=== PATIENT | male | born 1950 | race Caucasian/White ===

== ENCOUNTER 2020-03-08 17:13 | Inpatient (IN) ==
[2020-03-08] MEDS ORDERED: IOPAMIDOL 100 ML BOTTLE IV ONE (17:14)
--- NOTE | 2020-03-08 17:52 | XRay Report ---
HISTORY: Constipation and bloating FINDINGS: There is a large amount of gas with multiple air-fluid levels in dilated proximal and mid colon. There is air in nondistended sigmoid colon and rectum. A transition point is not clearly identified. There is relatively little fecal material in the colon. Air-fluid level is present in the stomach. The stomach is not overly distended. Couple air-fluid levels are seen in borderline dilated small intestine in the left mid abdomen. No free intra-abdominal air is present. Right diaphragm is elevated. There are postsurgical changes following prior fusion at L4-5. Two-vessel calcifications are present in the lower pelvis. IMPRESSION: Mid to distal large bowel obstruction Interpreted and Authenticated by: Willy Medel 03/08/20
[2020-03-08] MEDS ORDERED: ONDANSETRON 4 MG/2 ML VIAL IV ONE (18:23)
[2020-03-08] MEDS ORDERED: HYDROmorphone 0.5 MG/0.5 ML SYRINGE IV PRN ×2 (18:23→20:20)
[2020-03-08 19:40] LABS: POC Blood Urea Nitrogen 17 mg/dl (8-23); POC CO2 21 mmol/L (22-30); POC Calcium, Ionized 1.04 mmol/L (1.16-1.32); POC Chloride 102 mmol/L (96-108); POC Creatinine 0.9 mg/dl (0.7-1.2); POC Glucose, Random 106 mg/dL (70-105); POC Potassium 3.9 mmol/L (3.3-5.1); POC Sodium 137 mmol/L (133-145)
[2020-03-08 19:40] LABS: Basophils # (Auto) 0.04 K/mcL (0.00-0.30); Basophils % (Auto) 0.5 % (0.0-2.0); Eosinophils # (Auto) 0.37 K/mcL (0.00-0.70); Eosinophils % (Auto) 4.2 % (0.0-7.0); Granulocytes % (Auto) 76.6 % (38.0-78.0); Hematocrit 44.2 % (40.1-51.0); Hemoglobin 15.1 g/dL (13.7-17.5); Lymphocytes # (Auto) 0.95 K/mcL (1.50-4.80); Lymphocytes % (Auto) 10.8 % (15.5-49.0); Mean Cell Volume 96.9 fL (80.0-100.0); Mean Corpuscular HGB Conc 34.2 g/dL (31.0-36.0); Monocytes % (Auto) 7.9 % (1.0-12.0); Platelet Count 267 K/mcL (140-440); RBC 4.56 M/mcL (4.63-6.08); WBC 8.8 K/mcL (4.50-11.00)
--- NOTE | 2020-03-08 19:43 | Emergency Department Note ---
Abdominal Pain HPI General Chief Complaint: Constipation Stated Complaint: constipation Time Seen by Provider: 03/08/20 17:25 Source: patient Mode of arrival: ambulatory Limitations: no limitations History of Present Illness HPI Narrative: Narrative: 70-year-old male presents with abdominal pain and distention. Onset about a week ago and progressively getting worse. Was seen this morning for constipation. They told him to drink some MiraLAX and mag citrate. States he tries but everything just comes right back up. Is getting progressively worse throughout the day and he is miserable. States he did fall little over a week ago and it exacerbated his chronic back pain. States he has been taking Aleve [id number] for pain. States his back pain is nothing compared to his abdominal pain. Last normal bowel movement was 1 week ago. No bowel movement since. No fever or chills. He did not have any nausea or vomiting other than trying to drink the MiraLAX and mag citrate. He does still have nausea now. States the last time he ate was this morning and he ate 1 egg and can eat more than that because of the severe distention Related Data Home Medications Medication Instructions Recorded Confirmed Adult Low Dose Aspirin EC 81 mg PO DAILY 06/06/16 03/08/20 ascorbate calcium (vitamin C) 500 500 mg PO QDAY 10/27/19 03/08/20 mg tablet omega-3 fatty acids 1,000 mg 1,000 mg PO QDAY 10/27/19 03/08/20 capsule sildenafil 50 mg tablet 50 mg PO QDAY 10/27/19 03/08/20 Previous Rx's Medication Instructions Recorded levothyroxine 125 mcg capsule 125 mcg PO QDAY #30 cap 12/07/19 losartan 100 mg tablet See Rx Instructions .ROUTE 02/01/20 .COMPLEX #30 tablet cyclobenzaprine 10 mg PO TID #10 tab 03/05/20 tramadol 50 mg PO Q6H PRN #14 tab 03/05/20 Allergies Allergy/AdvReac Type Severity Reaction Status Date / Time atorvastatin [From Lipitor] Allergy Severe MUSCLE Verified 03/08/20 17:17 ACHES hydrocodone Allergy Unknown Irritable Verified 03/08/20 17:17 Review of Systems ROS ROS Narrative: Narrative: All systems ED: reviewed and negative except as stated. [facility] Narrative Patient History Narrative: Narrative: Medical/Surgical/Family History All Active Problems (Updated 03/08/20 @ 20:20 by CLAUDIA Brennan) Low back pain (Acute) Hematoma of lumbar muscle (Acute) Constipation due to opioid therapy (Acute) Bowel obstruction (Acute) Abdominal pain (Acute) Abdominal distension (Acute) Constipation (Acute) Obesity, Class II, BMI 35-39.9 (Chronic) Pneumonia (Chronic ~01/2010) Asthma (Chronic) Hypothyroid (Chronic) Hyperlipidemia (Chronic) Emphysema, unspecified (Chronic) Lumbar radiculopathy (Chronic) Annual physical exam (Chronic) Dyspnea (Chronic) Fatty liver disease, nonalcoholic (Chronic) Fatigue (Chronic) Erectile dysfunction (Chronic) Hyperglyceridemia (Chronic) Hypertension (Chronic) TGA (transient global amnesia) (Chronic) Medical History Annual physical exam (Chronic) Asthma (Chronic) Dyspnea (Chronic) Emphysema, unspecified (Chronic) Erectile dysfunction (Chronic) Fatigue (Chronic) Fatty liver disease, nonalcoholic (Chronic) Hyperglyceridemia (Chronic) Hyperlipidemia (Chronic) Hypertension (Chronic) Hypothyroid (Chronic) Lumbar radiculopathy (Chronic) Pneumonia (Chronic ~01/2010) HOSPITALIZED TGA (transient global amnesia) (Chronic) Surgical History History of inguinal hernia repair, bilateral (Chronic) History of lumbar fusion (Chronic ~08/2009) DECOMPRESSION WITH FUSION L4-S1, DR OSEI Family History Mother Diabetes CAD (coronary artery disease) Obesity Father Diabetes Brother Colon polyps Social History Smoking Status: Former smoker Alcohol Intake Frequency: a few times a month Substance Use: does not use Exam Narrative Narrative: Narrative: General Limitations: no limitations Head Head: atraumatic, normocephalic and normal inspection Eye Eye: Present normal appearance; Absent conjunctival injection ENT ENT: Present mucous membranes moist Neck Neck: Present normal inspection Chest Chest: Present normal inspection and symmetric chest wall rise Respiratory Respiratory: Present normal lung sounds bilaterally; Absent respiratory distress, rales/crackles, wheezes, stridor and accessory muscle use Cardiovascular Cardiovascular: Present regular rate, normal rhythm and normal heart sounds Adbominal Abdominal: Present soft, distention (Diffuse moderate distention), tenderness (Diffuse mild throughout) and diminished bowel sounds; Absent guarding and rebound Extremities Extremities: Present normal inspection Neurological Neurological: Present alert and oriented X3 Psychiatric Psychiatric: Present normal affect and normal mood Skin Skin: Present warm, dry, intact and normal color Course Course Course Narrative: At 2009 I did speak with surgeon on-call, Dr. Andrade. He agrees to accept this patient would like me to put in some ED transition orders. Would like to have the patient have a soapsuds enema tonight as well as in the morning. He would also like a 2 view abdomen done at 6 AM and he will be in around 7 AM to see the patient. We will keep the patient hydrated and provide nausea and pain medication as needed and IV fluids. Vital Signs Vital signs: Vital Signs Temperature 97.4 F 03/08/20 17:13 Pulse Rate 95 H 03/08/20 17:13 Respiratory Rate 20 03/08/20 17:13 Blood Pressure 154/105 03/08/20 17:13 Pulse Oximetry (%) 96 03/08/20 17:13 Temperature 97.4 F 03/08/20 17:13 Pulse Rate 77 03/08/20 20:17 Respiratory Rate 18 03/08/20 19:45 Blood Pressure 164/94 03/08/20 20:17 Pulse Oximetry (%) 96 03/08/20 20:17 MDM MDM Narrative Medical decision making narrative: Narrative: Lab Data Lab results reviewed: Yes I reviewed the patient's lab results. Result diagrams: 03/08/20 18:34 03/08/20 18:34 Labs: Lab Results 03/08/20 03/08/20 03/08/20 Range/Units 18:34 18:34 19:33 WBC 8.8 (4.50-11.00) K/mcL RBC 4.56 L (4.63-6.08) M/mcL Hgb 15.1 (13.7-17.5) g/dL Hct 44.2 (40.1-51.0) % POC Hct 41.0 (41.0-55.0) % MCV 96.9 (80.0-100.0) fL MCH 33.1 (26.0-34.0) pg MCHC 34.2 (31.0-36.0) g/dL RDW 12.0 (11.5-14.5) % Plt Count 267 (140-440) K/mcL MPV 10.0 (7.4-10.4) fL Gran % 76.6 (38.0-78.0) % Lymph % (Auto) 10.8 L (15.5-49.0) % [place] % (Auto) 7.9 (1.0-12.0) % Eos % (Auto) 4.2 (0.0-7.0) % Baso % (Auto) 0.5 (0.0-2.0) % Gran # 6.75 (1.80-8.00) K/mcL Lymph # (Auto) 0.95 L (1.50-4.80) K/mcL [place] # (Auto) 0.70 (0.10-0.90) K/mcL Eos # (Auto) 0.37 (0.00-0.70) K/mcL Baso # (Auto) 0.04 (0.00-0.30) K/mcL POC Sodium 137 (133-145) mmol/L Sodium 134 (133-145) mmol/L POC Potassium 3.9 (3.3-5.1) mmol/L Potassium 3.9 (3.3-5.1) mmol/L POC Chloride 102 (96-108) mmol/L Chloride 96 (96-108) mmol/L Carbon Dioxide 21 L (22-30) mmol/L POC Total CO2 21 L (22-30) mmol/L Anion Gap 17.0 H (8-16) POC BUN 17 (8-23) mg/dl BUN 17 (8-23) mg/dl Creatinine 1.0 (0.7-1.2) mg/dl POC Creatinine 0.9 (0.7-1.2) mg/dl GFR Calculation 75 Glucose 110 H (70-105) mg/dL POC Glucose 106 H (70-105) mg/dL Calcium 8.9 (8.6-10.4) mg/dl POC WB Ioniz Calcium 1.04 L (1.16-1.32) mmol/L Total Bilirubin 1.1 H (0.0-1.0) mg/dL AST 18 (0-37) U/l ALT 13 (0-40) U/l Alkaline Phosphatase 81 (39-117) U/L Total Protein 7.7 (5.9-8.4) gm/dL Albumin 4.0 (3.2-5.2) gm/dL Globulin 3.7 (2.2-3.7) gm/dL Albumin/Globulin Ratio 1.1 (1.0-2.3) Radiology Data Radiology results reviewed: Yes I reviewed the patient's radiology results. Discharge Plan Patient/Caregiver Discharge Instructions Pt seen by QUALITY IMPROVEMENT ENGINEER/PA only: Yes Clinical Impression: Bowel obstruction, Abdominal pain, Abdominal distension, Constipation Patient Disposition: Xfer As Inpt ([facility]) Follow up with: Irineo Paris ARNP [Primary Care Provider] - Schuyler Andrade MD [Physician] - Prescriptions: No Action omega-3 fatty acids 1,000 mg capsule 1,000 mg PO QDAY RF: 0 ascorbate calcium (vitamin C) 500 mg tablet 500 mg PO QDAY RF: 0 sildenafil [Viagra] 50 mg tablet 50 mg PO QDAY RF: 0 levothyroxine 125 mcg capsule 125 mcg PO QDAY Qty: 30 RF: 3 losartan 100 mg tablet See Rx Instructions .ROUTE .COMPLEX Qty: 30 RF: 2 Adult Low Dose Aspirin EC 81 mg PO DAILY RF: 0 cyclobenzaprine 10 mg Tablet 10 mg PO TID Qty: 10 RF: 0 tramadol 50 mg Tablet 50 mg PO Q6H PRN (Reason: Pain) Qty: 14 RF: 0
[2020-03-08] MEDS ORDERED: 0.9 % SODIUM CHLORIDE 1,000 ML IV SCH (19:45)
[2020-03-08 19:49] LABS: ALT/SGPT 13 U/l (0-40); AST/SGOT 18 U/l (0-37); Albumin/Globulin Ratio 1.1 (1.0-2.3); Alkaline Phosphatase 81 U/L (39-117); Bilirubin,Total 1.1 mg/dL (0.0-1.0); Blood Urea Nitrogen 17 mg/dl (8-23); Calcium 8.9 mg/dl (8.6-10.4); Carbon Dioxide 21 mmol/L (22-30); Chloride 96 mmol/L (96-108); Globulin 3.7 gm/dL (2.2-3.7); Glomerular Filtration Rate 75; Glucose 110 mg/dL (70-105)
[2020-03-08] MEDS ORDERED: 0.9 % SODIUM CHLORIDE 1,000 ML IV ONE (20:13)
[2020-03-08] MEDS ORDERED: ONDANSETRON 4 MG/2 ML VIAL IV PRN (20:22)
[2020-03-08] MEDS ORDERED: PROMETHAZINE 25 MG/ML VIAL IV PRN (20:22)
[2020-03-08] MEDS: 0.9 % SODIUM CHLORIDE 1,000 ML IV SCH (21:21)
[2020-03-09] MEDS: 0.9 % SODIUM CHLORIDE 1,000 ML IV SCH ×5 (03:15→21:16)
--- NOTE | 2020-03-09 07:47 | Cat Scan Report ---
History: Abdominal distention, pain and distal large bowel obstruction TECHNIQUE: The patient was imaged following intravenous but no oral contrast during the portal venous phase and excretory phase. Sagittal and coronal reformats were created. The radiation exposure was limited using dose reduction technology. FINDINGS: There is mild emphysema in the posterior basal segments of both lower lobes with several small subpleural bulla. The mild to moderate generalized fatty infiltration is present in the liver. The overall size of the liver is normal and there is no evidence of a mass. There are two calcified stones layering posteriorly within the gallbladder. They measure 5 mm in size. Gallbladder wall is not thickened and the bile ducts are nondilated. The spleen is normal in size. Beneath the capsule along the posterior border there is a low-attenuation 4 x 5 mm structure seen on the portal venous phase which becomes isodense with spleen on the delayed images. This may be a small hemangioma. The adrenals are normal. A 4 cm simple cyst is located anteriorly in the middle third of the right kidney. There are smaller cysts in the lower pole of the right kidney and there is also a 8 mm cyst in the lower third of the left kidney. No solid mass is seen in either kidney and there is no hydronephrosis. There is a 1 mm nonobstructing calyceal stone in the lower pole of the left kidney. The aorta is normal in caliber. There is moderate amount of plaque in the aorta and iliac arteries. Large intestine is distended. There is a large amount of solid fecal material in the rectum and distal sigmoid colon and a large amount liquefied stool from the cecum to the mid sigmoid colon. The wall of the colon does not appear to be thickened or inflamed and there are no diverticula. No discrete mass is seen in the distal rectum or anus. The fecal impaction, resulting in distal large bowel obstruction is a new finding compared with the recent CT done on 03/05/20. Small intestine is nondistended and contains liquid. The appendix is not visualized. No ascites is present. Is no evidence of abdominal or pelvic mass or abnormally enlarged lymph nodes. A subacute transversely oriented fracture is present in the mid body of L1. There is mild anterior wedging of this vertebra. There are some stranding of the adjacent prevertebral fat. Patient has had prior discectomy with interbody and posterior fusion at L4-5. There are degenerative changes throughout the spine and there are spinal canal stenosis at L1-2, L2-3, L3-4. Urinary bladder is normally distended and has a smooth border. The prostate is mildly enlarged. Both seminal vesicles are relatively plump but symmetric. Incidentally noted is a small fat-containing right inguinal hernia and a small fat-containing umbilical hernia. IMPRESSION: Fecal impaction in the distal colon resulting in partial large bowel obstruction Subacute fracture at L1 with mild loss in height of this vertebra Lani Maxwell was called with results Interpreted and Authenticated by: Willy Medel 03/09/20
--- NOTE | 2020-03-09 08:16 | XRay Report ---
HISTORY: Nasogastric tube insertion for distal large bowel obstruction FINDINGS: A nasogastric tube has been inserted into the body the stomach. The tip is pointing inferiorly. The stomach is decompressed. There are still multiple loops of mildly dilated colon with air-fluid levels in the mid and upper abdomen. The caliber of the colon has diminished a small amount since yesterday. Small intestine is nondilated. The urinary bladder is filled with excreted contrast following the preceding abdominal CT scan. Bladder is mildly distended. No free intra-abdominal air is present. IMPRESSION: Improving distal large bowel obstruction due to fecal impaction Interpreted and Authenticated by: Willy Medel 03/09/20
--- NOTE | 2020-03-09 08:17 | XRay Report ---
HISTORY: Nasogastric tube insertion for distal large bowel obstruction FINDINGS: Nasogastric tube has been inserted into the fundus of the stomach. The tip the catheter is curved and points back towards the gastroesophageal junction. The stomach contains an air but is not distended. There is a persistent dilated transverse colon which measures up to 8.1 cm. The caliber of the colon has not changed significantly from the earlier study done the same date. IMPRESSION: Well-positioned nasogastric tube Persistent dilatation of the transverse colon Interpreted and Authenticated by: Willy Medel 03/09/20
--- NOTE | 2020-03-09 12:27 | General Surg History&Physical ---
HPI History of Present Illness Patient information: Note initiated : 03/09/20 at 12:24 pm Service Date, if different from initiated Date: [] Patient: Ever Baron 70 y/o M admitted on 03/08/20 for constipation. Chief Complaint: [] History of present illness: Mr. Baron is a 70 year old M FECAL impaction and partial small bowel obstruction. The patient sustained a fall on 8 in February. He fell about 10 feet off a ladder and struck his back. He did not have any loss of consciousness. He sustained an acute fracture of the mid body of L1 but did not have any neurologic deficit. He was DISCHARGED HOME. hE WAS GIVEN uLTRAM for pain and took this for 3 days. He became progressively constipated developed increased nausea no vomiting. He returned to the emergency room where he was noted to have a distended abdomen with dilated small bowel and impaction of the rectosigmoid with stool extending back to the cecum. Patient had nausea but no vomiting. He has been given enemas with marginal results. He still has significant small bowel and colon distention. Review of Systems All systems: reviewed and no additional remarkable complaints except as stated Constitutional Constitutional: Present fatigue Respiratory Respiratory: Present dyspnea and other (shortness of breath) Gastrointestinal Gastrointestinal: Present abdominal pain, bloating, constipation and cramping Musculoskeletal Musculoskeletal: Present back pain [facility] Medical History Annual physical exam (Chronic) Asthma (Chronic) Dyspnea (Chronic) Emphysema, unspecified (Chronic) Erectile dysfunction (Chronic) Fatigue (Chronic) Fatty liver disease, nonalcoholic (Chronic) Hyperglyceridemia (Chronic) Hyperlipidemia (Chronic) Hypertension (Chronic) Hypothyroid (Chronic) Lumbar radiculopathy (Chronic) Pneumonia (Chronic ~01/2010) HOSPITALIZED TGA (transient global amnesia) (Chronic) Surgical History History of inguinal hernia repair, bilateral (Chronic) History of lumbar fusion (Chronic ~08/2009) DECOMPRESSION WITH FUSION L4-S1, DR OSEI Family History Mother Diabetes CAD (coronary artery disease) Obesity Father Diabetes Brother Colon polyps Social History (Updated 12/10/19 @ 10:36 by Irineo Paris [facility]) marital status: smoking status: Never smoker alcohol intake frequency: a few times a month substance use type: does not use MEDS/ALLERGIES Home Medications and Allergies Home Medications Medication Instructions Recorded Confirmed Type Adult Low Dose Aspirin EC 81 mg PO DAILY 06/06/16 03/08/20 History ascorbate calcium (vitamin C) 500 500 mg PO QDAY 10/27/19 03/08/20 History mg tablet omega-3 fatty acids 1,000 mg 1,000 mg PO QDAY 10/27/19 03/08/20 History capsule sildenafil 50 mg tablet 50 mg PO QDAY 10/27/19 03/08/20 History levothyroxine 125 mcg capsule 125 mcg PO QDAY #30 cap 12/07/19 03/08/20 Rx losartan 100 mg tablet See Rx Instructions .ROUTE 02/01/20 03/08/20 Rx .COMPLEX #30 tablet cyclobenzaprine 10 mg PO TID #10 tab 03/05/20 03/08/20 Rx tramadol 50 mg PO Q6H PRN #14 tab 03/05/20 03/08/20 Rx Allergies Allergy/AdvReac Type Severity Reaction Status Date / Time hydrocodone AdvReac Mild Irritable Verified 03/08/20 21:10 [id number] Reductase AdvReac Mild Muscle Pain Verified 03/09/20 07:42 Inhibitor Physical Examination Vital Signs Vital signs: Temp Pulse Resp BP Pulse Ox 98.5 F 88 20 158/101 92 03/09/20 08:00 03/09/20 08:00 03/09/20 08:00 03/09/20 08:00 03/09/20 08:00 General physical appearance General physical exam: well developed, well nourished, moderate distress and obese Eyes Eye exam: PERRL and normal ocular movement ENT ENT exam: normal pinna, normal nares, normal mucosa and no hearing loss Head Head exam IM: Present atraumatic, normal inspection and normocephalic Neck Neck exam: no masses, no bruits, trachea midline, no lymphadenopathy and no venous distension Cardiovascular Cardiovascular exam IM: Present normal rate and rhythm, RRR, +S1 and +S2; Absent gallop and JVD Respiratory Respiratory exam: normal expansion, normal respiratory effort, clear to percussion and clear to auscultation Abdomen Abdomen: Present soft, non tender, tender, bowel sounds and distended (history distention without tenderness; height hyperactive bowel sounds) Integumentary Integumentary: Present no rash, no growths, no abnormal pigmentation and other Neurologic Neurologic: Present normal coordination and normal sensation (no motor or sensory deficit) Musculoskeletal Musculoskeletal: Present other (moderate low back tenderness) Psychiatric Psychiatric: Present oriented to time, oriented to person, oriented to place, speech is normal and memory intact Results Labs Result diagrams: 03/08/20 18:34 03/08/20 18:34 Labs: Abnormal lab results 03/08/20 03/08/20 03/08/20 Range/Units 18:34 18:34 19:33 RBC 4.56 L (4.63-6.08) M/mcL Lymph % (Auto) 10.8 L (15.5-49.0) % Lymph # (Auto) 0.95 L (1.50-4.80) K/mcL Carbon Dioxide 21 L (22-30) mmol/L POC Total CO2 21 L (22-30) mmol/L Anion Gap 17.0 H (8-16) Glucose 110 H (70-105) mg/dL POC Glucose 106 H (70-105) mg/dL POC WB Ioniz Calcium 1.04 L (1.16-1.32) mmol/L Total Bilirubin 1.1 H (0.0-1.0) mg/dL Diabetes panel 03/08/20 Range/Units 18:34 Sodium 134 (133-145) mmol/L Potassium 3.9 (3.3-5.1) mmol/L Chloride 96 (96-108) mmol/L Carbon Dioxide 21 L (22-30) mmol/L BUN 17 (8-23) mg/dl Creatinine 1.0 (0.7-1.2) mg/dl Glucose 110 H (70-105) mg/dL Calcium 8.9 (8.6-10.4) mg/dl AST 18 (0-37) U/l ALT 13 (0-40) U/l Alkaline Phosphatase 81 (39-117) U/L Total Protein 7.7 (5.9-8.4) gm/dL Albumin 4.0 (3.2-5.2) gm/dL Calcium panel 03/08/20 Range/Units 18:34 Calcium 8.9 (8.6-10.4) mg/dl Albumin 4.0 (3.2-5.2) gm/dL Pituitary panel 03/08/20 Range/Units 18:34 Sodium 134 (133-145) mmol/L Potassium 3.9 (3.3-5.1) mmol/L Chloride 96 (96-108) mmol/L Carbon Dioxide 21 L (22-30) mmol/L BUN 17 (8-23) mg/dl Creatinine 1.0 (0.7-1.2) mg/dl Glucose 110 H (70-105) mg/dL Calcium 8.9 (8.6-10.4) mg/dl Adrenal panel 03/08/20 Range/Units 18:34 Sodium 134 (133-145) mmol/L Potassium 3.9 (3.3-5.1) mmol/L Chloride 96 (96-108) mmol/L Carbon Dioxide 21 L (22-30) mmol/L BUN 17 (8-23) mg/dl Creatinine 1.0 (0.7-1.2) mg/dl Glucose 110 H (70-105) mg/dL Calcium 8.9 (8.6-10.4) mg/dl Total Bilirubin 1.1 H (0.0-1.0) mg/dL AST 18 (0-37) U/l ALT 13 (0-40) U/l Alkaline Phosphatase 81 (39-117) U/L Total Protein 7.7 (5.9-8.4) gm/dL Albumin 4.0 (3.2-5.2) gm/dL All other labs normal. A/P Assessment and plan (1) Constipation due to opioid therapy: Status: Acute (2) Bowel obstruction: Status: Acute Qualifiers: Intestinal obstruction type: fecal impaction Qualified Code(s): K56.41 - Fecal impaction (3) Low back pain: Status: Acute Qualifiers: Back pain laterality: bilateral Chronicity: acute Sciatica presence: without sciatica Qualified Code(s): M54.5 - Low back pain (4) Hypertension: Status: Chronic Qualifiers: Hypertension type: essential hypertension Qualified Code(s): I10 - Essential (primary) hypertension Narrative A/P Narrative: nasogastric decompression Reglan 10 mg IV every 6 hours RELISTOR 12 mg subcutaneous every 24 hours MiraLAX 8 ounces 3 times daily Recommend reggie Mera now and repeat in 8 hours if needed Follow-up abdominal x-ray in the morning Time Spent With Patient Time: Total time spent is greater than 50% in coordination of care (as documented) at patient's floor/unit and/or counseling patient:
[2020-03-09] MEDS: METHYLNALTREXONE BROMIDE 12 MG/0.6 ML SYRINGE SQ SCH (13:08)
[2020-03-09] MEDS ORDERED: hydrALAZINE 20 MG/ML VIAL IV PRN (13:13)
[2020-03-09] MEDS ORDERED: [UNRECOGNIZED DRUG - OTHER] PR PRN (14:00)
[2020-03-09] MEDS: POLYETHYLENE GLYCOL 3350 17 GM PACKET PO SCH ×2 (17:49→20:35)
[2020-03-09] MEDS: METOCLOPRAMIDE 10 MG/2 ML VIAL IV SCH ×2 (17:50→23:04)
[2020-03-10] MEDS: POLYETHYLENE GLYCOL 3350 17 GM PACKET PO SCH ×2 (00:59→05:32)
[2020-03-10] MEDS: 0.9 % SODIUM CHLORIDE 1,000 ML IV SCH ×4 (01:00→13:12)
[2020-03-10] MEDS: METOCLOPRAMIDE 10 MG/2 ML VIAL IV SCH ×2 (05:32→13:12)
[2020-03-10] MEDS: METHYLNALTREXONE BROMIDE 12 MG/0.6 ML SYRINGE SQ SCH (09:14)
--- NOTE | 2020-03-10 10:04 | XRay Report ---
HISTORY: Follow-up distal large bowel obstruction from fecal impaction FINDINGS: There is an air-filled mobile cecum which measures 11 cm in diameter. The transverse colon measures up to 8.7 cm. Descending colon, sigmoid and rectum are normal in caliber. There is no evidence of residual fecal impaction. There are still air-fluid levels throughout the colon. The stomach is decompressed. Small bowel is nondilated. No free intra-abdominal air is present. There are two small gallstones in the right upper quadrant which were seen on the recent CT scan. IMPRESSION: Resolved fecal impaction but with residual air-fluid levels in the colon Interpreted and Authenticated by: Willy Medel 03/10/20
--- NOTE | 2020-03-10 12:22 | Discharge Summary ---
Discharge Provider Provider Patient information: Note initiated : 03/10/20 at 12:16 pm Service Date, if different from initiated Date: [] Patient: Ever Baron 70 y/o M admitted on 03/08/20 for constipation. Chief Complaint: [] Date of admission: 03/08/20 21:04 Discharge date: 03/10/20 Primary care physician: Irineo Paris Admitting clinician: Schuyler Andrade Attending physician on admission: Schuyler Andrade Consults: 03/08/20 Consult to Physician [CONS] Stat Comment: Consulting Provider: Schuyler Andrade Reason For Exam: Physician to Consult Attending physician on discharge: Schuyler Andrade Discharging clinician: Schuyler Andrade COURSE Hospital Course Hospital course: 70-year-old male admitted with a 3 day history of inability to have bowel movements. Patient had been using Ultram for a back injury secondary to a fall. He presented with evidence of fecal impaction with total obstruction of the colon with dilated small bowel. Patient was treated with milk of molasses enema, RELISTOR, MiraLAX and milk of magnesia. He has excellent results and has had multiple large bowel movements and pass large v olume of flatus. He is asymptomatic at this time and had 3 bowel movements today. His abdomen is soft. X-rays show some evaluation of his colon with decompression of the small bowel. Patient is stable for discharge home. Discharge diagnosis: narcotic induced constipation Secondary discharge diagnosis: fecal impaction Reason for admission: a fecal impaction with obstruction Pertinent studies/significant findings: none Complications: none Time Spent with Patient Time attestation: Total time spent providing and/or coordinating discharge services: Physical Examination Vital Signs Vital signs: Temp Pulse Resp BP Pulse Ox 98.1 F 82 20 164/92 95 03/10/20 12:00 03/10/20 12:00 03/10/20 12:00 03/10/20 12:00 03/10/20 12:00 General physical appearance General physical exam: well developed, well nourished, no distress and obese Eyes Eye exam: PERRL and normal ocular movement ENT ENT exam: normal pinna, normal nares, normal mucosa and no hearing loss Head Head exam IM: Present atraumatic, normal inspection and normocephalic Neck Neck exam: no masses, no bruits, trachea midline, no lymphadenopathy and no veno us distension Cardiovascular Cardiovascular exam IM: Present normal rate and rhythm, RRR, +S1 and +S2; Absent JVD Respiratory Respiratory exam: normal expansion, normal respiratory effort, clear to percussion and clear to auscultation Abdomen Abdomen: Present soft, non tender, tender, bowel sounds, organomegaly and distended Integumentary Integumentary: Present no rash, no growths and no abnormal pigmentation Neurologic Neurologic: Present normal coordination, normal sensation and deep tendon reflexes Musculoskeletal Musculoskeletal: Present normal gait and normal posture Psychiatric Psychiatric: Present oriented to time, oriented to person, oriented to place, speech is normal, memory intact and other Discharge Plan Patient/Caregiver Discharge Instructions Activity: increase activity as tolerated Diet: Regular Diet Prescriptions: No Action omega-3 fatty acids 1,000 mg capsule 1,000 mg PO QDAY RF: 0 ascorbate calcium (vitamin C) 500 mg tablet 500 mg PO QDAY RF: 0 sildenafil [Viagra] 50 mg tablet 50 mg PO QDAY RF: 0 levothyroxine 125 mcg capsule 125 mcg PO QDAY Qty: 30 RF: 3 losartan 100 mg tablet See Rx Instructions .ROUTE .COMPLEX Qty: 30 RF: 2 Adult Low Dose Aspirin EC 81 mg PO DAILY RF: 0 cyclobenzaprine 10 mg Tablet 10 mg PO TID Qty: 10 RF: 0 tramadol 50 mg Tablet 50 mg PO Q6H PRN (Reason: Pain) Qty: 14 RF: 0 Follow Up Plan Follow up with: Irineo Paris ARNP [Primary Care Provider] - Schuyler Andrade MD [Physician] - (make an office visit with me on April 07 Have a 2 view x-ray performed 2-3 days before your return to the office) Patient Disposition: Home, Self-Care Plan of Treatment: milk of magnesia 30 cc twice daily for 4 days MiraLAX 17 g Full in 8 ounces liquid twice daily or as needed indefinitely Two-view abdominal x-ray to be performed 2 days before patient returns to the office Prognosis: Good Rehab Potential: Good I certify that the patient requires SNF services: No Overall status at discharge: patient is back to baseline Discharge Orders: Discharge Order (Routine); Ordered 03/10/20 Ordered By: Schuyler Andrade Pending Pending Pending: Resuscitation Status Full Code Diet Full Liquid Diet Start SatMar 09 1643 Hydralazine HCl (Apresoline) 20 mg IV Q4HP PRN PRN Reason: Hypertension Last Admin: 03/09/20 13:37 Dose: 20 mg Documented by: FIDEL Hydromorphone HCl (Dilaudid) 1 mg IV Q2HP PRN; Protocol PRN Reason: Per Pain Protocol Last Admin: 03/09/20 08:10 Dose: 1 mg Documented by: Zeeshan Sodium Chloride (Sodium Chloride 0.9%) 1,000 mls @ 150 mls/hr IV .[id number] [facility] Last Admin: 03/10/20 08:43 Dose: 150 mls/hr Documented by: Infusion: 03/10/20 08:42 Dose: 0 mls/hr Documented by: Admin: 03/10/20 05:21 Dose: Not Given Documented by: Admin: 03/10/20 01:00 Dose: 150 mls/hr Documented by: Infusion: 03/10/20 01:00 Dose: 150 mls/hr Documented by: Admin: 03/09/20 21:16 Dose: Not Given Documented by: Admin: 03/09/20 18:53 Dose: 150 mls/hr Documented by: Infusion: 03/09/20 18:49 Dose: 150 mls/hr Documented by: Admin: 03/09/20 17:23 Dose: Not Given Documented by: Admin: 03/09/20 12:08 Dose: 150 mls/hr Documented by: Infusion: 03/09/20 09:56 Dose: 150 mls/hr Documented by: Admin: 03/09/20 03:15 Dose: 150 mls/hr Documented by: Infusion: 03/09/20 03:15 Dose: 150 mls/hr Documented by: Admin: 03/08/20 21:21 Dose: 150 mls/hr Documented by: CORAZON Methylnaltrexone [place] (Relistor) 12 mg SQ DAILY [facility] Stop: 03/11/20 09:01 Last Admin: 03/10/20 09:14 Dose: 12 mg Documented by: Admin: 03/09/20 13:08 Dose: 12 mg Documented by: FIDEL Metoclopramide HCl (Reglan) 10 mg IV Q6 [facility]IRI Last Admin: 03/10/20 05:32 Dose: 10 mg Documented by: Admin: 03/09/20 23:04 Dose: 10 mg Documented by: Admin: 03/09/20 17:50 Dose: 10 mg Documented by: FIDEL 8oz Milk And 8oz (Molasses Enema) 16 units CO Q8HP PRN PRN Reason: CONSTIPATION Last Admin: 03/09/20 13:08 Dose: 16 units Documented by: FIDEL Shift Summary 03/10/20 04:31 Shift Summary by Nyla Vanegas History of Present Illness 70-year-old male presents with abdominal pain and distention. Onset about a week ago and progressively getting worse. Was seen this morning for constipation. They told him to drink some MiraLAX and mag citrate. States he tries but everything just comes right back up. Is getting progressively worse throughout the day and he is miserable. States he did fall little over a week ago and it exacerbated his chronic back pain. States he has been taking Aleve [id number] for pain. States his back pain is nothing compared to his abdominal pain. Last normal bowel movement was 1 week ago. No bowel movement since. No fever or chills. He did not have any nausea or vomiting other than trying to drink the MiraLAX and mag citrate. He does still have nausea now. States the last time he ate was this morning and he ate 1 egg and can eat more than that because of the severe distention Yesterdays X-Ray IMPRESSION: Improving distal large bowel obstruction due to fecal impaction Pt is A&Ox4 up with SBA in room and FWW gait belt in hallway. Pt ambulated in hallway last evening. Tolerating diet no n/v. Pt had loose BM's this shift with amy. Last dose of miralax will be at 0600. Pt voiding via bathroom QS. No PRN's required this shift. Pt does have PRN BP meds if SBP is greater than 160. Repeat x-ray at 0800. Pt hopes to go home today. Pt had restless night and not much sleep. Will update with verbal report. Selected Entries 03/09/20 19:35 03/09/20 23:15 03/10/20 03:10 Blood Pressure [Right Arm] 155/97 157/97 148/87 Initialized on 03/10/20 04:31 - END OF NOTE
== END 2020-03-10 13:57 | disposition home or self-care (01) | DRG 392 ==
LOC: ED 17:13 → MEDSUR 20:04
PROVIDERS: ADMIT Family Medicine Adult Medicine; ATTEND Family Medicine Adult Medicine